=== PATIENT | female | born 1935 | race Caucasian/White ===

== ENCOUNTER 2023-03-25 15:45 | Inpatient (IN) | payer OTHER ==
[~2023-03-25] VITALS: Ht 142.2 cm; Wt 44.9 kg
[2023-03-25 15:57] VITALS: BP_SYST 185
[2023-03-25] MEDS ORDERED: ONDANSETRON HCL 4 MG/2 ML VIAL IVP ONE (16:00)
[2023-03-25] MEDS ORDERED: NS 500 ML IV ONE (16:00)
[2023-03-25] MEDS ORDERED: MAGNESIUM SULFATE 50 ML IV ONE ×2 (16:00→17:30)
[2023-03-25 16:25] LABS: BASOPHILS # (AUTO) 0.1 K/uL (0.0-0.2); EOSINOPHILS # (AUTO) 0.1 K/uL (0.0-0.4); EOSINOPHILS % (AUTO) 1.6 % (0.0-4.0); HEMATOCRIT 44.6 % (36-48); HEMOGLOBIN 14.5 g/dL (12.0-16.0); LYMPHOCYTES % (AUTO) 14.2 % (20.5-51.5); MEAN CORPUSCULAR HEMOGLOBIN 30 pg (27-31); MEAN CORPUSCULAR HGB CONC 33 % (32-36); MEAN CORPUSCULAR VOLUME 94 fL (79.0-98.0); MONOCYTES # (AUTO) 0.6 K/uL (0.0-1.0); MONOCYTES % (AUTO) 8.2 % (1.7-9.3); NEUTROPHILS # (AUTO) 5.3 K/uL (1.8-7.7); PLATELET COUNT (AUTO) 153 K/uL (130-430); RED BLOOD CELL COUNT(AUTO) 4.75 MIL/uL (4.2-6.2); RED CELL DISTRIBUTION WIDTH 14.7 % (9.0-15.0); WHITE BLOOD COUNT (AUTO) 7.1 K/uL (4.8-10.8)
[2023-03-25 16:33] LABS: ANION GAP 12 (5-15); CALCIUM 8.8 mg/dL (8.4-11.0); CHLORIDE 99 mmol/L (98-107); CREATININE 1.37 mg/dL (0.55-1.30); GLUCOSE 264 mg/dL (70-99); UREA NITROGEN, BLOOD 32 mg/dL (8-21)
[2023-03-25 16:46] LABS: ALANINE AMINOTRANSFERASE 27 U/L (12-78); ALBUMIN 3.4 g/dL (3.4-4.8); ASPARTATE AMINOTRANSFERASE 36 U/L (10-37); FREE T4 (FREE THYROXINE) 1.3 ng/dL (0.6-1.6); THYROID STIMULATING HORMONE 1.93 uIu/mL (0.34-4.82); TOTAL BILIRUBIN 0.8 mg/dL (0.0-1.0)
[2023-03-25] MEDS ORDERED: SITA100T11 PO (18:38)
[2023-03-25] MEDS ORDERED: CLOP75TA32 PO (18:38)
[2023-03-25] MEDS ORDERED: LIP40 PO (18:38)
[2023-03-25] MEDS ORDERED: HYDR-4037 PO (18:38)
[2023-03-25] MEDS ORDERED: NIFE20CA PO (18:38)
[2023-03-25] MEDS ORDERED: CARV25TA55 PO (18:38)
[2023-03-25] MEDS ORDERED: GLIP10TA21 PO (18:38)
[2023-03-25] MEDS ORDERED: GABA-529 PO (18:38)
[2023-03-25] MEDS ORDERED: DONE10TA44 PO (18:38)
[2023-03-25 19:05] VITALS: BP_SYST 120
[2023-03-25 20:00] VITALS: BP_SYST 115
[2023-03-25 20:52] VITALS: BP_SYST 115
[2023-03-25] MEDS ORDERED: NALOXONE HCL 0.4 MG/ML AMP (NARCAN) IVP PRN ×2 (22:00)
[2023-03-25] MEDS ORDERED: HYDROcodone/ACETAMIN 10-325 MG TAB PO PRN (22:00)
[2023-03-25] MEDS ORDERED: LORazepam 2 MG/ML VIAL IVP PRN (22:00)
[2023-03-25] MEDS ORDERED: ONDANSETRON HCL 4 MG/2 ML VIAL IVP PRN (22:00)
[2023-03-25] MEDS ORDERED: ACETAMINOPHEN 325 MG TABLET PO PRN (22:00)
[2023-03-25] MEDS ORDERED: HYDROcodone/ACETAMIN 5-325 MG TAB (NORCO/ VICODIN) PO PRN (22:00)
[2023-03-25] MEDS: NACL 0.9% 1,000 ML IV SCH (23:37)
[2023-03-26 00:14] VITALS: BP_SYST 118
[2023-03-26 05:31] LABS: BASOPHILS # (AUTO) 0.1 K/uL (0.0-0.2); BASOPHILS % (AUTO) 1.1 % (0.0-2.0); EOSINOPHILS # (AUTO) 0.3 K/uL (0.0-0.4); EOSINOPHILS % (AUTO) 4.6 % (0.0-4.0); HEMATOCRIT 36.2 % (36-48); LYMPHOCYTES # (AUTO) 1.1 K/uL (1.0-5.5); LYMPHOCYTES % (AUTO) 19.2 % (20.5-51.5); MEAN CORPUSCULAR HEMOGLOBIN 31 pg (27-31); MEAN CORPUSCULAR HGB CONC 33 % (32-36); MEAN CORPUSCULAR VOLUME 94 fL (79.0-98.0); MONOCYTES # (AUTO) 0.6 K/uL (0.0-1.0); MONOCYTES % (AUTO) 11.4 % (1.7-9.3); NEUTROPHILS # (AUTO) 3.6 K/uL (1.8-7.7); NEUTROPHILS % (AUTO) 63.7 % (40.0-70.0); PLATELET COUNT (AUTO) 138 K/uL (130-430); RED BLOOD CELL COUNT(AUTO) 3.86 MIL/uL (4.2-6.2); RED CELL DISTRIBUTION WIDTH 14.2 % (9.0-15.0); WHITE BLOOD COUNT (AUTO) 5.6 K/uL (4.8-10.8)
[2023-03-26 06:03] LABS: ALANINE AMINOTRANSFERASE 21 U/L (12-78); ALBUMIN 2.7 g/dL (3.4-4.8); ANION GAP 11 (5-15); ASPARTATE AMINOTRANSFERASE 24 U/L (10-37); CALCIUM 8.1 mg/dL (8.4-11.0); CHLORIDE 104 mmol/L (98-107); CHOLESTEROL 129 mg/dL (<200); CREATININE 1.41 mg/dL (0.55-1.30); GLUCOSE 105 mg/dL (70-99); HDL CHOLESTEROL 74 mg/dL (>55); PHOSPHORUS 4.1 mg/dL (2.7-4.5); THYROID STIMULATING HORMONE 1.82 uIu/mL (0.34-4.82); TOTAL BILIRUBIN 0.7 mg/dL (0.0-1.0); TRIGLYCERIDES 141 mg/dL (30-150); UREA NITROGEN, BLOOD 30 mg/dL (8-21)
[2023-03-26 08:00] VITALS: BP_SYST 156
[2023-03-26] MEDS: glipiZIDE XL 5 MG TAB ( GLUCOTROL XL) PO SCH ×2 (09:26→21:39)
[2023-03-26] MEDS: hydrALAZINE HCL 10 MG TABLET PO SCH ×3 (09:26→21:39)
[2023-03-26] MEDS: GABAPENTIN 100 MG CAPSULE PO SCH ×3 (09:26→21:37)
[2023-03-26] MEDS: NIFEdipine 30 MG TAB.ER.24 PO SCH (09:26)
[2023-03-26] MEDS: CARVEDILOL 25 MG TABLET (COREG) PO SCH ×2 (09:27→21:38)
[2023-03-26] MEDS: CLOPIDOGREL BISULFATE 75 MG TABLET PO SCH (09:27)
[2023-03-26] MEDS: NACL 0.9% 1,000 ML IV SCH (09:28)
[2023-03-26] MEDS ORDERED: POTASSIUM CHLORIDE 20 MEQ TAB.PRT.SR PO ONE (09:45)
[2023-03-26] MEDS: D5/0.45 NS 1,000 ML IV SCH ×2 (10:47→19:45)
[2023-03-26] MEDS ORDERED: CALCIUM GLUCONATE 1 GM in NS 100 ML IV ONE (11:00)
[2023-03-26 11:49] VITALS: BP_SYST 151
[2023-03-26] MEDS: INSULIN REGULAR, HUMAN 100 UNITS/ML, 3 ML VIAL (humuLIN R) SUBCUT PRN ×2 (11:49→21:45)
[2023-03-26 15:34] VITALS: BP_SYST 122
[2023-03-26 20:00] VITALS: BP_SYST 132
[2023-03-26] MEDS ORDERED: ATORVASTATIN 20 MG TABLET PO SCH (21:00)
[2023-03-26] MEDS ORDERED: DONEPEZIL HCL 5 MG TABLET (ARICEPT) PO SCH (21:00)
[2023-03-27] VITALS: BP_SYST 120
[2023-03-27 05:40] LABS: BASOPHILS % (AUTO) 0.7 % (0.0-2.0); EOSINOPHILS # (AUTO) 0.2 K/uL (0.0-0.4); EOSINOPHILS % (AUTO) 3.9 % (0.0-4.0); HEMATOCRIT 32.4 % (36-48); HEMOGLOBIN 10.8 g/dL (12.0-16.0); LYMPHOCYTES % (AUTO) 18.5 % (20.5-51.5); MEAN CORPUSCULAR HEMOGLOBIN 31 pg (27-31); MEAN CORPUSCULAR HGB CONC 33 % (32-36); MEAN CORPUSCULAR VOLUME 94 fL (79.0-98.0); MONOCYTES # (AUTO) 0.6 K/uL (0.0-1.0); MONOCYTES % (AUTO) 11.4 % (1.7-9.3); NEUTROPHILS # (AUTO) 3.5 K/uL (1.8-7.7); NEUTROPHILS % (AUTO) 65.5 % (40.0-70.0); PLATELET COUNT (AUTO) 114 K/uL (130-430); RED BLOOD CELL COUNT(AUTO) 3.44 MIL/uL (4.2-6.2); WHITE BLOOD COUNT (AUTO) 5.3 K/uL (4.8-10.8)
[2023-03-27] MEDS: D5/0.45 NS 1,000 ML IV SCH (06:30)
[2023-03-27 06:55] LABS: ALANINE AMINOTRANSFERASE 16 U/L (12-78); ALBUMIN 2.4 g/dL (3.4-4.8); ANION GAP 8 (5-15); ASPARTATE AMINOTRANSFERASE 20 U/L (10-37); CALCIUM 7.6 mg/dL (8.4-11.0); CHLORIDE 108 mmol/L (98-107); GLUCOSE 93 mg/dL (70-99); TOTAL BILIRUBIN 0.4 mg/dL (0.0-1.0); UREA NITROGEN, BLOOD 22 mg/dL (8-21)
[2023-03-27] MEDS: glipiZIDE XL 5 MG TAB ( GLUCOTROL XL) PO SCH (09:36)
[2023-03-27] MEDS: hydrALAZINE HCL 10 MG TABLET PO SCH ×2 (09:36→15:45)
[2023-03-27] MEDS: CARVEDILOL 25 MG TABLET (COREG) PO SCH (09:36)
[2023-03-27] MEDS: CLOPIDOGREL BISULFATE 75 MG TABLET PO SCH (09:37)
[2023-03-27] MEDS: GABAPENTIN 100 MG CAPSULE PO SCH ×2 (09:37→15:45)
[2023-03-27] MEDS: NIFEdipine 30 MG TAB.ER.24 PO SCH (09:37)
[2023-03-27] MEDS ORDERED: POTASSIUM CHLORIDE 20 MEQ TAB.PRT.SR PO ONE (11:30)
[2023-03-27] MEDS ORDERED: MAGNESIUM OXIDE 400 MG TABLET PO ONE (11:30)
[2023-03-27] MEDS ORDERED: CALCIUM GLUCONATE 2 GM in NS 100 ML IV ONE (12:00)
[2023-03-27] MEDS: INSULIN REGULAR, HUMAN 100 UNITS/ML, 3 ML VIAL (humuLIN R) SUBCUT PRN (12:06)
[2023-03-27] MEDS ORDERED: NORMAL SALINE 5 ML DISP.SYRIN IVF SCH (14:00)
[2023-03-27 16:41] VITALS: BP_SYST 157
[2023-03-28] MEDS ORDERED: MAGNESIUM OXIDE 400 MG TABLET PO SCH (09:00)
[2023-03-28] MEDS ORDERED: POTASSIUM CHLORIDE 20 MEQ TAB.PRT.SR PO SCH (09:00)
== END 2023-03-27 17:20 | disposition home health service (06) | DRG 308 ==
LOC: SED 15:45 → STU 16:56 → SMU 03-27 12:20
PROVIDERS: ADMIT Preventive Medicine Preventive Medicine/Occupational Environmental Medicine; ATTEND Preventive Medicine Preventive Medicine/Occupational Environmental Medicine
DX: R00.1 Bradycardia, unspecified (principal); E43 Unspecified severe protein-calorie malnutrition; N17.0 Acute kidney failure with tubular necrosis; I42.9 Cardiomyopathy, unspecified; I12.9 Hypertensive chronic kidney disease with stage 1 through stage 4 chronic kidney disease, or unspecified chronic kidney disease; E78.5 Hyperlipidemia, unspecified; E83.51 Hypocalcemia; E88.09 Other disorders of plasma-protein metabolism, not elsewhere classified; Z68.22 Body mass index [BMI] 22.0-22.9, adult; E87.6 Hypokalemia; E83.42 Hypomagnesemia; I35.0 Nonrheumatic aortic (valve) stenosis; N18.32 Chronic kidney disease, stage 3b; D63.1 Anemia in chronic kidney disease; I25.10 Atherosclerotic heart disease of native coronary artery without angina pectoris
CPT/HCPCS: 36415; 70450-TC; 71045; 76376; 76770; 80053; 80061; 83735; 83880; 84100; 84439; 84443; 84484; 85025; 93005; 93306; 93880; 96365; 96375; 97110-GP; 97116-GP; 97530-GP; 99291; 99292; G0378; J0610; J2405; J3475

== ENCOUNTER 2023-06-01 20:23 | Inpatient (IN) | payer OTHER ==
[~2023-06-01] VITALS: Ht 137.2 cm; Wt 41.7 kg
[~2023-06-01 20:23] MED LIST: CARV25TA55 PO; CLOP75TA32 PO; DONE10TA44 PO; GABA-529 PO; GLIP10TA21 PO; HYDR-4037 PO; LIP40 PO; NIFE20CA PO; SITA100T11 PO
[2023-06-01 20:45] VITALS: BP_SYST 181; PULSE 65; RESP 19; TEMP 97.7; O2SAT 99
[2023-06-01] MEDS ORDERED: iohexoL 350 mgI/mL, 100 ML INFUS..BTL IV ONE (21:36)
[2023-06-01 22:01] LABS: BILIRUBIN,URINE NEGATIVE (NEGATIVE); BLOOD, URINE NEGATIVE (NEGATIVE); CLARITY/URINE CLEAR (CLEAR); COLOR,URINE YELLOW (YELLOW); GLUCOSE,URINE TRACE (NEGATIVE); KETONES,URINE NEGATIVE (NEGATIVE); LEUKOCYTE ESTERASE ,URINE NEGATIVE (NEGATIVE); NITRITE, URINE NEGATIVE (NEGATIVE); PH,URINE 5.5 (5.0-8.0); PROTEIN URINE 3+ (NEGATIVE); UROBILINOGEN,URINE 0.2 (0.2-1.0)
[2023-06-01 22:10] LABS: BACTERIA,URINE None Seen /HPF (None Seen); MUCUS,URINE None Seen /LPF (None Seen); RBC,URINE 0-3 /HPF (0-3); WBC,URINE 0-3 /HPF (0-3)
[2023-06-01 22:17] LABS: BASOPHILS % (AUTO) 0.2 % (0.0-2.0); EOSINOPHILS # (AUTO) 0.1 K/uL (0.0-0.4); EOSINOPHILS % (AUTO) 1.5 % (0.0-4.0); HEMATOCRIT 37.6 % (36-48); HEMOGLOBIN 12.4 g/dL (12.0-16.0); LYMPHOCYTES % (AUTO) 12.9 % (20.5-51.5); MEAN CORPUSCULAR HEMOGLOBIN 31 pg (27-31); MEAN CORPUSCULAR HGB CONC 33 % (32-36); MEAN CORPUSCULAR VOLUME 94 fL (79.0-98.0); MONOCYTES # (AUTO) 0.9 K/uL (0.0-1.0); MONOCYTES % (AUTO) 11.6 % (1.7-9.3); NEUTROPHILS # (AUTO) 5.9 K/uL (1.8-7.7); NEUTROPHILS % (AUTO) 73.8 % (40.0-70.0); PLATELET COUNT (AUTO) 170 K/uL (130-430); RED BLOOD CELL COUNT(AUTO) 4.03 MIL/uL (4.2-6.2); RED CELL DISTRIBUTION WIDTH 13.4 % (9.0-15.0)
[2023-06-01 22:30] LABS: ANION GAP 8 (5-15); CALCIUM 8.9 mg/dL (8.4-11.0); CARBON DIOXIDE 27 mmol/L (23-29); CHLORIDE 92 mmol/L (98-107); CREATININE 1.77 mg/dL (0.55-1.30); GLUCOSE 235 mg/dL (74-106); POTASSIUM 4.4 mmol/L (3.5-5.1); SODIUM SERUM 127 mmol/L (136-145); UREA NITROGEN, BLOOD 32 mg/dL (8-21)
[2023-06-01 22:39] LABS: ALANINE AMINOTRANSFERASE 25 U/L (12-78); ALBUMIN 3.2 g/dL (3.4-4.8); ASPARTATE AMINOTRANSFERASE 28 U/L (10-37); LIPASE 396 U/L (73-393); TOTAL BILIRUBIN 0.3 mg/dL (0.0-1.0); TOTAL PROTEIN, SERUM 7.1 g/dL (6.4-8.3)
[2023-06-01] MEDS ORDERED: NACL 0.9% 1,000 ML IV ONE (23:30)
[2023-06-02] VITALS (7 sets, daily range): BP systolic 86–193; PULSE 40–73; RESP 16–20; TEMP 96.2–97.8; O2SAT 97–99
[2023-06-02] MEDS ORDERED: NIFE60TA65 PO (02:50)
[2023-06-02] MEDS ORDERED: CEPH-548 PO (02:50)
[2023-06-02] MEDS ORDERED: SITA50TA3 PO (02:50)
[2023-06-02] MEDS ORDERED: ATOR40TA68 PO (02:50)
[2023-06-02] MEDS ORDERED: D5/0.45 NS 1,000 ML IV ONE (05:00)
[2023-06-02 05:14] LABS: BASOPHILS % (AUTO) 0.6 % (0.0-2.0); EOSINOPHILS # (AUTO) 0.2 K/uL (0.0-0.4); EOSINOPHILS % (AUTO) 2.2 % (0.0-4.0); HEMATOCRIT 34.6 % (36-48); HEMOGLOBIN 11.4 g/dL (12.0-16.0); LYMPHOCYTES # (AUTO) 1.2 K/uL (1.0-5.5); LYMPHOCYTES % (AUTO) 15.1 % (20.5-51.5); MEAN CORPUSCULAR HEMOGLOBIN 31 pg (27-31); MEAN CORPUSCULAR HGB CONC 33 % (32-36); MEAN CORPUSCULAR VOLUME 94 fL (79.0-98.0); MONOCYTES % (AUTO) 12.7 % (1.7-9.3); NEUTROPHILS # (AUTO) 5.5 K/uL (1.8-7.7); NEUTROPHILS % (AUTO) 69.4 % (40.0-70.0); PLATELET COUNT (AUTO) 164 K/uL (130-430); RED CELL DISTRIBUTION WIDTH 13.5 % (9.0-15.0); WHITE BLOOD COUNT (AUTO) 7.9 K/uL (4.8-10.8)
[2023-06-02] MEDS ORDERED: NALOXONE HCL 0.4 MG/ML AMP (NARCAN) IVP PRN ×2 (07:15)
[2023-06-02] MEDS ORDERED: HYDROcodone/ACETAMIN 5-325 MG TAB (NORCO/ VICODIN) PO PRN (07:15)
[2023-06-02] MEDS ORDERED: LORazepam 2 MG/ML VIAL IVP PRN (07:15)
[2023-06-02] MEDS ORDERED: HYDROcodone/ACETAMIN 10-325 MG TAB PO PRN (07:15)
[2023-06-02] MEDS ORDERED: ONDANSETRON HCL 4 MG/2 ML VIAL IVP PRN (07:15)
[2023-06-02] MEDS ORDERED: ACETAMINOPHEN 325 MG TABLET PO PRN ×2 (07:15→07:30)
[2023-06-02 07:50] LABS: BASOPHILS % (AUTO) 0.4 % (0.0-2.0); EOSINOPHILS # (AUTO) 0.1 K/uL (0.0-0.4); EOSINOPHILS % (AUTO) 1.9 % (0.0-4.0); HEMATOCRIT 36.3 % (36-48); HEMOGLOBIN 11.8 g/dL (12.0-16.0); LYMPHOCYTES % (AUTO) 14.2 % (20.5-51.5); MEAN CORPUSCULAR HEMOGLOBIN 31 pg (27-31); MEAN CORPUSCULAR HGB CONC 33 % (32-36); MEAN CORPUSCULAR VOLUME 94 fL (79.0-98.0); MONOCYTES # (AUTO) 0.8 K/uL (0.0-1.0); MONOCYTES % (AUTO) 10.6 % (1.7-9.3); NEUTROPHILS # (AUTO) 5.3 K/uL (1.8-7.7); NEUTROPHILS % (AUTO) 72.9 % (40.0-70.0); PLATELET COUNT (AUTO) 163 K/uL (130-430); RED BLOOD CELL COUNT(AUTO) 3.87 MIL/uL (4.2-6.2); RED CELL DISTRIBUTION WIDTH 13.4 % (9.0-15.0); WHITE BLOOD COUNT (AUTO) 7.2 K/uL (4.8-10.8)
[2023-06-02 08:32] LABS: ANION GAP 4 (5-15); CALCIUM 8.3 mg/dL (8.4-11.0); CARBON DIOXIDE 28 mmol/L (23-29); CHLORIDE 100 mmol/L (98-107); CREATININE 1.36 mg/dL (0.55-1.30); GLUCOSE 218 mg/dL (74-106); POTASSIUM 4.2 mmol/L (3.5-5.1); SODIUM SERUM 132 mmol/L (136-145); UREA NITROGEN, BLOOD 21 mg/dL (8-21)
[2023-06-02] MEDS ORDERED: NON-FORMULARY MEDICATION (Nifedipine 60 MG) PO SCH (09:00)
[2023-06-02] MEDS: GABAPENTIN 100 MG CAPSULE PO SCH ×3 (10:08→21:13)
[2023-06-02] MEDS: NIFEdipine 30 MG TAB.ER.24 PO SCH (10:08)
[2023-06-02] MEDS: CARVEDILOL 25 MG TABLET (COREG) PO SCH ×2 (10:09→21:16)
[2023-06-02] MEDS: hydrALAZINE HCL 10 MG TABLET PO SCH ×3 (10:09→21:14)
[2023-06-02] MEDS: CLOPIDOGREL BISULFATE 75 MG TABLET PO SCH (10:10)
[2023-06-02] MEDS: cephALEXin 500 MG CAPSULE PO SCH ×2 (10:12→21:16)
[2023-06-02] MEDS: MECLIZINE HCL 25 MG TABLET (ANITVERT) PO SCH ×2 (15:08→21:13)
[2023-06-02] MEDS: NACL 0.9% 1,000 ML IV SCH ×2 (17:42→17:43)
[2023-06-02] MEDS: ATORVASTATIN 20 MG TABLET PO SCH (21:13)
[2023-06-02] MEDS: DONEPEZIL HCL 5 MG TABLET (ARICEPT) PO SCH (21:16)
[2023-06-03] VITALS: BP_SYST 113; PULSE 62; RESP 18; TEMP 97.9; O2SAT 98
[2023-06-03 04:00] VITALS: BP_SYST 92; PULSE 58; RESP 14; TEMP 97.5; O2SAT 58
[2023-06-03 06:24] LABS: ANION GAP 6 (5-15); CALCIUM 8.1 mg/dL (8.4-11.0); CARBON DIOXIDE 26 mmol/L (23-29); CHLORIDE 102 mmol/L (98-107); CREATININE 1.69 mg/dL (0.55-1.30); FREE T4 (FREE THYROXINE) 1.4 ng/dL (0.6-1.6); GLUCOSE 83 mg/dL (74-106); PHOSPHORUS 3.7 mg/dL (2.7-4.5); POTASSIUM 3.9 mmol/L (3.5-5.1); SODIUM SERUM 134 mmol/L (136-145); THYROID STIMULATING HORMONE 2.43 uIu/mL (0.34-4.82); UREA NITROGEN, BLOOD 26 mg/dL (8-21)
[2023-06-03 07:20] LABS: BASOPHILS % (AUTO) 0.4 % (0.0-2.0); EOSINOPHILS # (AUTO) 0.4 K/uL (0.0-0.4); EOSINOPHILS % (AUTO) 5.3 % (0.0-4.0); HEMATOCRIT 30.3 % (36-48); HEMOGLOBIN 9.9 g/dL (12.0-16.0); LYMPHOCYTES # (AUTO) 1.2 K/uL (1.0-5.5); LYMPHOCYTES % (AUTO) 17.9 % (20.5-51.5); MEAN CORPUSCULAR HEMOGLOBIN 31 pg (27-31); MEAN CORPUSCULAR HGB CONC 33 % (32-36); MEAN CORPUSCULAR VOLUME 94 fL (79.0-98.0); MONOCYTES # (AUTO) 0.8 K/uL (0.0-1.0); MONOCYTES % (AUTO) 11.6 % (1.7-9.3); NEUTROPHILS # (AUTO) 4.5 K/uL (1.8-7.7); NEUTROPHILS % (AUTO) 64.8 % (40.0-70.0); PLATELET COUNT (AUTO) 148 K/uL (130-430); RED BLOOD CELL COUNT(AUTO) 3.24 MIL/uL (4.2-6.2); RED CELL DISTRIBUTION WIDTH 13.5 % (9.0-15.0)
[2023-06-03 08:00] VITALS: BP_SYST 129; PULSE 70; RESP 17; TEMP 97.6; O2SAT 96
[2023-06-03] MEDS: cephALEXin 500 MG CAPSULE PO SCH ×2 (09:35→22:24)
[2023-06-03] MEDS: CLOPIDOGREL BISULFATE 75 MG TABLET PO SCH (09:36)
[2023-06-03] MEDS: GABAPENTIN 100 MG CAPSULE PO SCH ×3 (09:36→22:23)
[2023-06-03] MEDS: MECLIZINE HCL 25 MG TABLET (ANITVERT) PO SCH ×3 (09:36→22:23)
[2023-06-03] MEDS: NIFEdipine 30 MG TAB.ER.24 PO SCH (09:36)
[2023-06-03] MEDS: CARVEDILOL 25 MG TABLET (COREG) PO SCH ×2 (09:36→22:24)
[2023-06-03] MEDS: hydrALAZINE HCL 10 MG TABLET PO SCH ×3 (09:37→22:24)
[2023-06-03 10:40] VITALS: O2SAT 96
[2023-06-03 12:00] VITALS: BP_SYST 120; PULSE 71; RESP 18; TEMP 98.2; O2SAT 99
[2023-06-03] MEDS: NACL 0.9% 1,000 ML IV SCH ×2 (14:29→14:30)
[2023-06-03 20:00] VITALS: BP_SYST 120; PULSE 80; RESP 18; TEMP 99.1; O2SAT 96
[2023-06-03] MEDS: DONEPEZIL HCL 5 MG TABLET (ARICEPT) PO SCH (22:23)
[2023-06-03] MEDS: ATORVASTATIN 20 MG TABLET PO SCH (22:23)
[2023-06-04] VITALS (7 sets, daily range): BP systolic 128–144; PULSE 71–82; RESP 13–20; TEMP 96.5–97; O2SAT 95–98
[2023-06-04] MEDS: NACL 0.9% 1,000 ML IV SCH ×3 (02:27→21:34)
[2023-06-04 05:00] LABS: BASOPHILS % (AUTO) 0.8 % (0.0-2.0); EOSINOPHILS # (AUTO) 0.4 K/uL (0.0-0.4); EOSINOPHILS % (AUTO) 8.4 % (0.0-4.0); HEMATOCRIT 28.4 % (36-48); HEMOGLOBIN 9.4 g/dL (12.0-16.0); LYMPHOCYTES # (AUTO) 0.8 K/uL (1.0-5.5); LYMPHOCYTES % (AUTO) 16.5 % (20.5-51.5); MEAN CORPUSCULAR HEMOGLOBIN 31 pg (27-31); MEAN CORPUSCULAR HGB CONC 33 % (32-36); MEAN CORPUSCULAR VOLUME 94 fL (79.0-98.0); MONOCYTES # (AUTO) 0.6 K/uL (0.0-1.0); MONOCYTES % (AUTO) 12.5 % (1.7-9.3); NEUTROPHILS # (AUTO) 3.2 K/uL (1.8-7.7); NEUTROPHILS % (AUTO) 61.8 % (40.0-70.0); PLATELET COUNT (AUTO) 138 K/uL (130-430); RED BLOOD CELL COUNT(AUTO) 3.03 MIL/uL (4.2-6.2); RED CELL DISTRIBUTION WIDTH 13.4 % (9.0-15.0); WHITE BLOOD COUNT (AUTO) 5.1 K/uL (4.8-10.8)
[2023-06-04 05:48] LABS: ALANINE AMINOTRANSFERASE 18 U/L (12-78); ALBUMIN 2.1 g/dL (3.4-4.8); ANION GAP 5 (5-15); ASPARTATE AMINOTRANSFERASE 23 U/L (10-37); CALCIUM 7.7 mg/dL (8.4-11.0); CARBON DIOXIDE 25 mmol/L (23-29); CHLORIDE 105 mmol/L (98-107); GLUCOSE 122 mg/dL (74-106); POTASSIUM 4.5 mmol/L (3.5-5.1); SODIUM SERUM 135 mmol/L (136-145); TOTAL BILIRUBIN 0.3 mg/dL (0.0-1.0); TOTAL PROTEIN, SERUM 4.8 g/dL (6.4-8.3); UREA NITROGEN, BLOOD 31 mg/dL (8-21)
[2023-06-04] MEDS: CARVEDILOL 25 MG TABLET (COREG) PO SCH ×2 (10:06→21:36)
[2023-06-04] MEDS: NIFEdipine 30 MG TAB.ER.24 PO SCH (10:07)
[2023-06-04] MEDS: MECLIZINE HCL 25 MG TABLET (ANITVERT) PO SCH ×3 (10:07→21:31)
[2023-06-04] MEDS: cephALEXin 500 MG CAPSULE PO SCH ×2 (10:07→21:31)
[2023-06-04] MEDS: hydrALAZINE HCL 10 MG TABLET PO SCH ×3 (10:07→21:35)
[2023-06-04] MEDS: CLOPIDOGREL BISULFATE 75 MG TABLET PO SCH (10:07)
[2023-06-04] MEDS: GABAPENTIN 100 MG CAPSULE PO SCH ×3 (10:08→21:31)
[2023-06-04] MEDS: ATORVASTATIN 20 MG TABLET PO SCH (21:31)
[2023-06-04] MEDS: DONEPEZIL HCL 5 MG TABLET (ARICEPT) PO SCH (21:31)
[2023-06-05 01:30] VITALS: BP_SYST 144; PULSE 85; RESP 18; TEMP 97.5; O2SAT 98
[2023-06-05] MEDS: NACL 0.9% 1,000 ML IV SCH (05:30)
[2023-06-05 06:01] LABS: ANION GAP 6 (5-15); CARBON DIOXIDE 25 mmol/L (23-29); CHLORIDE 106 mmol/L (98-107); CREATININE 1.17 mg/dL (0.55-1.30); GLUCOSE 150 mg/dL (74-106); PHOSPHORUS 3.2 mg/dL (2.7-4.5); POTASSIUM 4.2 mmol/L (3.5-5.1); SODIUM SERUM 137 mmol/L (136-145); UREA NITROGEN, BLOOD 23 mg/dL (8-21)
[2023-06-05 06:03] LABS: BASOPHILS % (AUTO) 0.5 % (0.0-2.0); EOSINOPHILS # (AUTO) 0.5 K/uL (0.0-0.4); HEMATOCRIT 30.1 % (36-48); HEMOGLOBIN 10.1 g/dL (12.0-16.0); LYMPHOCYTES # (AUTO) 0.9 K/uL (1.0-5.5); LYMPHOCYTES % (AUTO) 13.7 % (20.5-51.5); MEAN CORPUSCULAR HEMOGLOBIN 31 pg (27-31); MEAN CORPUSCULAR HGB CONC 34 % (32-36); MEAN CORPUSCULAR VOLUME 94 fL (79.0-98.0); MONOCYTES # (AUTO) 0.7 K/uL (0.0-1.0); NEUTROPHILS # (AUTO) 4.5 K/uL (1.8-7.7); NEUTROPHILS % (AUTO) 68.8 % (40.0-70.0); PLATELET COUNT (AUTO) 158 K/uL (130-430); RED BLOOD CELL COUNT(AUTO) 3.22 MIL/uL (4.2-6.2); RED CELL DISTRIBUTION WIDTH 13.3 % (9.0-15.0); WHITE BLOOD COUNT (AUTO) 6.5 K/uL (4.8-10.8)
[2023-06-05 08:10] VITALS: BP_SYST 137; PULSE 71; RESP 17; TEMP 97.2; O2SAT 96
[2023-06-05 08:14] VITALS: O2SAT 96
[2023-06-05] MEDS: MECLIZINE HCL 25 MG TABLET (ANITVERT) PO SCH (08:30)
[2023-06-05] MEDS: CARVEDILOL 25 MG TABLET (COREG) PO SCH (08:31)
[2023-06-05] MEDS: CLOPIDOGREL BISULFATE 75 MG TABLET PO SCH (08:31)
[2023-06-05] MEDS: cephALEXin 500 MG CAPSULE PO SCH (08:32)
[2023-06-05] MEDS: GABAPENTIN 100 MG CAPSULE PO SCH (08:32)
[2023-06-05] MEDS: hydrALAZINE HCL 10 MG TABLET PO SCH (08:33)
[2023-06-05] MEDS: NIFEdipine 30 MG TAB.ER.24 PO SCH (08:34)
[2023-06-05] MEDS ORDERED: MECL-160 PO (11:03)
[2023-06-05 11:38] VITALS: BP_SYST 140; PULSE 72; RESP 18; TEMP 98.1; O2SAT 99
[2023-06-05 11:57] VITALS: BP_SYST 137; PULSE 71; RESP 18; TEMP 97.2; O2SAT 96
[2023-06-05] MEDS ORDERED: NORMAL SALINE 5 ML DISP.SYRIN IVF SCH (14:00)
== END 2023-06-05 13:32 | DRG 682 ==
LOC: SED 20:23 → STU 06-02 02:37 → SMU 06-05 11:38
PROVIDERS: ADMIT Preventive Medicine Preventive Medicine/Occupational Environmental Medicine; ATTEND Preventive Medicine Preventive Medicine/Occupational Environmental Medicine
DX: N17.0 Acute kidney failure with tubular necrosis (principal); E43 Unspecified severe protein-calorie malnutrition; E87.1 Hypo-osmolality and hyponatremia; E86.0 Dehydration; R42 Dizziness and giddiness; I12.9 Hypertensive chronic kidney disease with stage 1 through stage 4 chronic kidney disease, or unspecified chronic kidney disease; I25.10 Atherosclerotic heart disease of native coronary artery without angina pectoris; E11.42 Type 2 diabetes mellitus with diabetic polyneuropathy; R00.8 Other abnormalities of heart beat; E11.22 Type 2 diabetes mellitus with diabetic chronic kidney disease; E83.52 Hypercalcemia; D64.9 Anemia, unspecified; N18.30 Chronic kidney disease, stage 3 unspecified; E88.09 Other disorders of plasma-protein metabolism, not elsewhere classified; E11.65 Type 2 diabetes mellitus with hyperglycemia; E78.5 Hyperlipidemia, unspecified; Z86.73 Personal history of transient ischemic attack (TIA), and cerebral infarction without residual deficits; Z68.22 Body mass index [BMI] 22.0-22.9, adult
CPT/HCPCS: 36415; 70450-TC; 70496; 70498; 71045; 76376; 80048; 80053; 81000; 82533; 82550; 83690; 83735; 83880; 83930; 84100; 84439; 84443; 84484; 85025; 93005; 97110-GP; 97116-GP; 97530-GP; 99285; G0378; J7030; J8597; Q9967

== ENCOUNTER 2024-07-30 10:23 | Inpatient (IN) | payer OTHER ==
[~2024-07-30] VITALS: Ht 134.6 cm; Wt 46.1 kg
[2024-07-30 10:23] VITALS: BP_SYST 191; PULSE 87; RESP 15; TEMP 98.2; O2SAT 98
[~2024-07-30 10:23] MED LIST changes: +ATOR40TA68 PO; +CEPH-548 PO; +HYDR-2923 PO; -HYDR-4037 PO; +MECL-292 PO; +NIFE-76 PO; -NIFE20CA PO; +NIFE20CA8 PO; +SITA50TA3 PO
[2024-07-30 11:11] LABS: BASOPHILS % (AUTO) 0.3 % (0.0-2.0); EOSINOPHILS # (AUTO) 0.1 K/uL (0.0-0.4); EOSINOPHILS % (AUTO) 0.7 % (0.0-4.0); HEMATOCRIT 43.3 % (36-48); HEMOGLOBIN 14.2 g/dL (12.0-16.0); LYMPHOCYTES # (AUTO) 1.2 K/uL (1.0-5.5); LYMPHOCYTES % (AUTO) 11.4 % (20.5-51.5); MEAN CORPUSCULAR HEMOGLOBIN 32 pg (27-31); MEAN CORPUSCULAR HGB CONC 33 % (32-36); MEAN CORPUSCULAR VOLUME 96 fL (79.0-98.0); MONOCYTES # (AUTO) 0.5 K/uL (0.0-1.0); MONOCYTES % (AUTO) 5.2 % (1.7-9.3); NEUTROPHILS # (AUTO) 8.7 K/uL (1.8-7.7); NEUTROPHILS % (AUTO) 82.4 % (40.0-70.0); PLATELET COUNT (AUTO) 211 K/uL (130-430); RED BLOOD CELL COUNT(AUTO) 4.51 MIL/uL (4.2-6.2); RED CELL DISTRIBUTION WIDTH 13.6 % (9.0-15.0); WHITE BLOOD COUNT (AUTO) 10.6 K/uL (4.8-10.8)
[2024-07-30 11:22] LABS: BILIRUBIN,URINE NEGATIVE (NEGATIVE); BLOOD, URINE 1+ (NEGATIVE); CLARITY/URINE CLEAR (CLEAR); COLOR,URINE YELLOW (YELLOW); GLUCOSE,URINE 3+ (NEGATIVE); KETONES,URINE NEGATIVE (NEGATIVE); LEUKOCYTE ESTERASE ,URINE NEGATIVE (NEGATIVE); NITRITE, URINE NEGATIVE (NEGATIVE); PROTEIN URINE 3+ (NEGATIVE); UROBILINOGEN,URINE 0.2 (0.2-1.0)
[2024-07-30 11:23] LABS: COVID19 ANTIGEN SOFIA FIA NEGATIVE (NEGATIVE)
[2024-07-30 11:24] LABS: INFLUENZA TYPE A Negative (NEGATIVE); INFLUENZA TYPE B NEGATIVE (NEGATIVE)
[2024-07-30 11:32] LABS: BACTERIA,URINE MANY /HPF (None Seen); RBC,URINE 0-3 /HPF (0-3); WBC,URINE 20-50 /HPF (0-3)
[2024-07-30] MEDS: NACL 0.9% 1,000 ML IV ONE (11:47)
[2024-07-30] MEDS: ONDANSETRON HCL 4 MG/2 ML VIAL IVP ONE (11:48)
[2024-07-30 12:27] LABS: ALANINE AMINOTRANSFERASE 13 U/L (12-78); ALBUMIN 3.1 g/dL (3.4-4.8); ANION GAP 11 (5-15); ASPARTATE AMINOTRANSFERASE 25 U/L (10-37); CALCIUM 9.2 mg/dL (8.4-11.0); CARBON DIOXIDE 25 mmol/L (23-29); CHLORIDE 96 mmol/L (98-107); CREATININE 1.53 mg/dL (0.55-1.30); GLUCOSE 236 mg/dL (74-106); POTASSIUM 4.3 mmol/L (3.5-5.1); SODIUM SERUM 132 mmol/L (136-145); TOTAL BILIRUBIN 0.6 mg/dL (0.0-1.0); TOTAL PROTEIN, SERUM 7.4 g/dL (6.4-8.3); UREA NITROGEN, BLOOD 23 mg/dL (8-21)
[2024-07-30 12:29] LABS: BILIRUBIN,DIRECT 0.1 mg/dL (0.0-0.3)
[2024-07-30] MEDS ORDERED: MUPIROCIN 2% TOPICAL OINTMENT 22 GM NS PRN (14:15)
[2024-07-30] MEDS ORDERED: MAGNESIUM SULFATE 50 ML IV PRN (14:15)
[2024-07-30] MEDS ORDERED: DOCUSATE SODIUM 100 MG CAPSULE PO PRN (14:15)
[2024-07-30] MEDS ORDERED: POTASSIUM CHLORIDE 20 MEQ TABLET.ER PO PRN (14:15)
[2024-07-30] MEDS ORDERED: MORPHINE 2 MG/ML INJ. SYRINGE IVP PRN ×2 (14:15)
[2024-07-30] MEDS ORDERED: LORazepam 2 MG/ML VIAL IVP PRN (14:15)
[2024-07-30] MEDS ORDERED: DEXTROSE 50% JECT 50 ML DISP.SYRIN IVP PRN (14:15)
[2024-07-30] MEDS ORDERED: ZOLPIDEM TARTRATE 5 MG TABLET PO PRN (14:15)
[2024-07-30] MEDS ORDERED: hydrALAZINE HCL 10 MG TABLET PO SCH ×2 (15:00→21:00)
[2024-07-30] MEDS ORDERED: NIFE-76 PO (15:35)
[2024-07-30] MEDS ORDERED: GABA-529 PO (15:35)
[2024-07-30] MEDS ORDERED: HYDR-2923 PO (15:35)
[2024-07-30] MEDS: cefTRIAXone 1 GM IVPB PREMIX 50 ML IV ONE (15:45)
[2024-07-30] MEDS: cloNIDine HCL 0.1 MG TABLET PO PRN (16:06)
[2024-07-30] MEDS ORDERED: hydrALAZINE HCL 20 MG/ML VIAL IVP ONE (16:15)
[2024-07-30 17:23] VITALS: BP_SYST 122; PULSE 78; RESP 18; TEMP 97.2; O2SAT 97
[2024-07-30] MEDS ORDERED: ACETAMINOPHEN 500 MG TABLET PO PRN ×3 (17:30)
[2024-07-30] MEDS: NACL 0.9% 1,000 ML IV SCH (18:21)
[2024-07-30] MEDS: INSULIN LISPRO SLIDING SCALE 100 UNITS/ML, 3 ML VIAL (humaLOG) SUBCUT PRN (18:24)
[2024-07-30 19:00] VITALS: BP_SYST 144; PULSE 64; RESP 16; TEMP 97.5; O2SAT 99
[2024-07-30 20:00] VITALS: BP_SYST 144; PULSE 64; RESP 18; TEMP 98.6; O2SAT 99
[2024-07-30] MEDS ORDERED: HEPARIN SODIUM,PORCINE 5,000 UNITS/ML VIAL SUBCUT SCH (21:00)
[2024-07-30] MEDS ORDERED: CARVEDILOL 25 MG TABLET (COREG) PO SCH (21:00)
[2024-07-30] MEDS: DONEPEZIL HCL 5 MG TABLET (ARICEPT) PO SCH (21:02)
[2024-07-30] MEDS: CARVEDILOL 6.25 MG TABLET (COREG) PO SCH (21:02)
[2024-07-30] MEDS: GABAPENTIN 100 MG CAPSULE PO SCH (21:02)
[2024-07-30] MEDS: NIFEdipine 30 MG TAB.ER.24 PO SCH (21:20)
[2024-07-31] VITALS (7 sets, daily range): BP systolic 130–180; PULSE 61–82; RESP 16–20; TEMP 96.8–98; O2SAT 97–100
[2024-07-31 06:58] LABS: BASOPHILS % (AUTO) 0.1 % (0.0-2.0); EOSINOPHILS % (AUTO) 0.1 % (0.0-4.0); HEMATOCRIT 41.3 % (36-48); HEMOGLOBIN 13.5 g/dL (12.0-16.0); LYMPHOCYTES # (AUTO) 0.7 K/uL (1.0-5.5); LYMPHOCYTES % (AUTO) 7.7 % (20.5-51.5); MEAN CORPUSCULAR HEMOGLOBIN 31 pg (27-31); MEAN CORPUSCULAR HGB CONC 33 % (32-36); MEAN CORPUSCULAR VOLUME 96 fL (79.0-98.0); MONOCYTES # (AUTO) 0.3 K/uL (0.0-1.0); MONOCYTES % (AUTO) 3.3 % (1.7-9.3); NEUTROPHILS # (AUTO) 8.1 K/uL (1.8-7.7); NEUTROPHILS % (AUTO) 88.8 % (40.0-70.0); PLATELET COUNT (AUTO) 196 K/uL (130-430); RED BLOOD CELL COUNT(AUTO) 4.29 MIL/uL (4.2-6.2); RED CELL DISTRIBUTION WIDTH 13.7 % (9.0-15.0); WHITE BLOOD COUNT (AUTO) 9.2 K/uL (4.8-10.8)
[2024-07-31 07:23] LABS: ANION GAP 11 (5-15); CALCIUM 8.9 mg/dL (8.4-11.0); CARBON DIOXIDE 25 mmol/L (23-29); CHLORIDE 101 mmol/L (98-107); CREATININE 1.33 mg/dL (0.55-1.30); GLUCOSE 162 mg/dL (74-106); POTASSIUM 3.6 mmol/L (3.5-5.1); SODIUM SERUM 137 mmol/L (136-145); UREA NITROGEN, BLOOD 21 mg/dL (8-21)
[2024-07-31] MEDS: CLOPIDOGREL BISULFATE 75 MG TABLET PO SCH (08:44)
[2024-07-31] MEDS: cefTRIAXone 1 GM in D5W 50 ML IV SCH (08:45)
[2024-07-31] MEDS ORDERED: PIOGLITAZONE HCL 15 MG TABLET PO SCH (09:00)
[2024-07-31] MEDS ORDERED: NIFEdipine 30 MG TAB.ER.24 PO SCH (09:00)
[2024-07-31] MEDS: hydrALAZINE HCL 10 MG TABLET PO PRN (11:33)
[2024-07-31] MEDS: LABETALOL HCL 20 MG/4 ML CARTRIDGE IVP ONE (14:31)
[2024-07-31] MEDS: KCL 20 mEq in 100 mL (PREMIX) 100 ML IV ONE (16:52)
[2024-07-31] MEDS: CARVEDILOL 25 MG TABLET (COREG) PO SCH (20:46)
[2024-07-31] MEDS: MAGNESIUM SULFATE 50 ML IV ONE (21:21)
[2024-08-01] VITALS: BP_SYST 148; PULSE 72; RESP 18; TEMP 97.8; O2SAT 98
[2024-08-01 07:00] VITALS: O2SAT 100
[2024-08-01 07:06] LABS: ANION GAP 12 (5-15); CALCIUM 8.4 mg/dL (8.4-11.0); CARBON DIOXIDE 23 mmol/L (23-29); CHLORIDE 106 mmol/L (98-107); CREATININE 1.47 mg/dL (0.55-1.30); GLUCOSE 101 mg/dL (74-106); POTASSIUM 3.8 mmol/L (3.5-5.1); SODIUM SERUM 141 mmol/L (136-145); UREA NITROGEN, BLOOD 22 mg/dL (8-21)
[2024-08-01 07:13] LABS: BASOPHILS % (AUTO) 0.8 % (0.0-2.0); EOSINOPHILS # (AUTO) 0.2 K/uL (0.0-0.4); EOSINOPHILS % (AUTO) 3.2 % (0.0-4.0); HEMATOCRIT 35.3 % (36-48); HEMOGLOBIN 11.7 g/dL (12.0-16.0); LYMPHOCYTES # (AUTO) 1.1 K/uL (1.0-5.5); LYMPHOCYTES % (AUTO) 18.1 % (20.5-51.5); MEAN CORPUSCULAR HEMOGLOBIN 32 pg (27-31); MEAN CORPUSCULAR HGB CONC 33 % (32-36); MEAN CORPUSCULAR VOLUME 95 fL (79.0-98.0); MONOCYTES # (AUTO) 0.6 K/uL (0.0-1.0); MONOCYTES % (AUTO) 9.2 % (1.7-9.3); NEUTROPHILS # (AUTO) 4.2 K/uL (1.8-7.7); NEUTROPHILS % (AUTO) 68.7 % (40.0-70.0); PLATELET COUNT (AUTO) 171 K/uL (130-430); RED CELL DISTRIBUTION WIDTH 13.8 % (9.0-15.0); WHITE BLOOD COUNT (AUTO) 6.1 K/uL (4.8-10.8)
[2024-08-01] MEDS: ONDANSETRON HCL 4 MG/2 ML VIAL IVP PRN (07:45)
[2024-08-01 08:00] VITALS: BP_SYST 139; PULSE 79; RESP 19; TEMP 98.8; O2SAT 96
[2024-08-01 12:23] VITALS: BP_SYST 147; PULSE 64; RESP 16; TEMP 97.7; O2SAT 99
[2024-08-01 16:22] VITALS: BP_SYST 130; PULSE 64; RESP 16; TEMP 97.8; O2SAT 97
[2024-08-01 20:00] VITALS: BP_SYST 147; PULSE 69; RESP 18; TEMP 97.8; O2SAT 97
[2024-08-02] VITALS: BP_SYST 138; PULSE 67; RESP 18; TEMP 97.6; O2SAT 98
[2024-08-02 07:44] LABS: BASOPHILS % (AUTO) 0.7 % (0.0-2.0); EOSINOPHILS # (AUTO) 0.4 K/uL (0.0-0.4); EOSINOPHILS % (AUTO) 5.2 % (0.0-4.0); HEMATOCRIT 34.3 % (36-48); HEMOGLOBIN 11.2 g/dL (12.0-16.0); LYMPHOCYTES # (AUTO) 1.2 K/uL (1.0-5.5); LYMPHOCYTES % (AUTO) 17.5 % (20.5-51.5); MEAN CORPUSCULAR HEMOGLOBIN 32 pg (27-31); MEAN CORPUSCULAR HGB CONC 33 % (32-36); MEAN CORPUSCULAR VOLUME 97 fL (79.0-98.0); MONOCYTES # (AUTO) 0.5 K/uL (0.0-1.0); MONOCYTES % (AUTO) 6.9 % (1.7-9.3); NEUTROPHILS # (AUTO) 4.7 K/uL (1.8-7.7); NEUTROPHILS % (AUTO) 69.7 % (40.0-70.0); PLATELET COUNT (AUTO) 174 K/uL (130-430); RED BLOOD CELL COUNT(AUTO) 3.55 MIL/uL (4.2-6.2); RED CELL DISTRIBUTION WIDTH 13.7 % (9.0-15.0); WHITE BLOOD COUNT (AUTO) 6.7 K/uL (4.8-10.8)
[2024-08-02 08:14] LABS: ANION GAP 7 (5-15); CALCIUM 8.5 mg/dL (8.4-11.0); CARBON DIOXIDE 24 mmol/L (23-29); CHLORIDE 109 mmol/L (98-107); CREATININE 1.33 mg/dL (0.55-1.30); GLUCOSE 132 mg/dL (74-106); POTASSIUM 4.4 mmol/L (3.5-5.1); SODIUM SERUM 140 mmol/L (136-145); UREA NITROGEN, BLOOD 23 mg/dL (8-21)
[2024-08-02 08:33] VITALS: BP_SYST 160; PULSE 117; RESP 17; TEMP 98; O2SAT 98
[2024-08-02] MEDS ORDERED: hydrALAZINE HCL 20 MG/ML VIAL IVP PRN (09:00)
[2024-08-02 09:33] VITALS: BP_SYST 150; PULSE 60; RESP 18; TEMP 98; O2SAT 98
[2024-08-02 10:00] VITALS: O2SAT 98
[2024-08-02] MEDS: levoFLOXacin 500 MG TABLET PO SCH (11:13)
== END 2024-08-02 12:10 | DRG 690 ==
LOC: SED 10:23 → STU 14:22
PROVIDERS: ADMIT General Practice; ATTEND General Practice
DX: N39.0 Urinary tract infection, site not specified (principal); E87.20 Acidosis, unspecified; I12.9 Hypertensive chronic kidney disease with stage 1 through stage 4 chronic kidney disease, or unspecified chronic kidney disease; E11.22 Type 2 diabetes mellitus with diabetic chronic kidney disease; N18.30 Chronic kidney disease, stage 3 unspecified; Z79.899 Other long term (current) drug therapy; Z88.8 Allergy status to other drugs, medicaments and biological substances
CPT/HCPCS: 36415; 70450-TC; 71045; 80048; 80076; 81000; 81001; 81015; 82948; 83037; 83605; 83735; 84484; 85025; 87040; 87086; 87186; 93005; 97110-GP; 97116-GP; 97530-GP; 99285; G0378; J0696; J2405; J3475; J3480; J7060